=== PATIENT | female | born 1985 | race African-American/Black ===

== ENCOUNTER 2020-10-30 11:20 | Outpatient (REF) | payer OTHER, SELFPAY ==
[2020-10-30 14:47] LABS: Thyroid Stimulating Hormone 1.12 uIU/mL (0.32-4.0)
[2020-10-31 09:13] LABS: Prolactin 13.8 ng/mL
[2020-10-31 21:42] LABS: C. trachomatis RNA TMA NOT DETECTED (NOT DETECTED); N. gonorrhoeae RNA TMA NOT DETECTED (NOT DETECTED)
== END 2020-10-30 11:21 | disposition home or self-care (01) ==
LOC: HO.HMGCLDS 11:20
PROVIDERS: PCP Internal Medicine; Visit Provider Advanced Practice Midwife
DX: Z11.3 Encounter for screening for infections with a predominantly sexual mode of transmission (principal)
CPT/HCPCS: 84146; 84443; 87086; 87491; 87591

== ENCOUNTER 2020-11-01 09:59 | Outpatient (REF) | payer OTHER, SELFPAY ==
--- NOTE | 2020-11-01 | US_ITS ---
EXAMINATION: ULTRASOUND PELVIS COMPLETE. CLINICAL INFORMATION: Excessive and frequent menstruation. COMPARISON: None TECHNIQUE: Transabdominal and transvaginal ultrasound pelvis is performed. FINDINGS: The uterus is anteverted and anteflexed measuring 8.6 cm in length, 5.1 cm in AP and 6.1 cm wide. The uterus is homogeneous in echotexture. The endometrial thickening is 1.1 cm. There are several nabothian cysts seen in cervix. The right ovary measures 3.2 x 2.0 x 2.5 cm and volume 8.0 mL. It appears unremarkable. The left ovary measures 3.2 x 2.4 x 2.9 cm and volume 1.5 mL. There is a simple anechoic cyst measuring 2.0 x 1.6 x 2.0 cm. There is no free fluid in cul-de-sac. US/US pelvic complete IMPRESSION: Simple left ovarian cyst. Unremarkable anteverted uterus. Small nabothian cysts seen in the cervix. The right ovary is unremarkable.
--- NOTE | 2020-11-01 | US_ITS ---
EXAMINATION: ULTRASOUND PELVIS COMPLETE. CLINICAL INFORMATION: Excessive and frequent menstruation. COMPARISON: None TECHNIQUE: Transabdominal and transvaginal ultrasound pelvis is performed. FINDINGS: The uterus is anteverted and anteflexed measuring 8.6 cm in length, 5.1 cm in AP and 6.1 cm wide. The uterus is homogeneous in echotexture. The endometrial thickening is 1.1 cm. There are several nabothian cysts seen in cervix. The right ovary measures 3.2 x 2.0 x 2.5 cm and volume 8.0 mL. It appears unremarkable. The left ovary measures 3.2 x 2.4 x 2.9 cm and volume 1.5 mL. There is a simple anechoic cyst measuring 2.0 x 1.6 x 2.0 cm. There is no free fluid in cul-de-sac. US/US transvaginal IMPRESSION: Simple left ovarian cyst. Unremarkable anteverted uterus. Small nabothian cysts seen in the cervix. The right ovary is unremarkable.
== END 2020-11-01 10:00 | disposition home or self-care (01) ==
LOC: HO.HMGCX 09:59
PROVIDERS: PCP Family Medicine; Visit Provider Advanced Practice Midwife
DX: N92.1 Excessive and frequent menstruation with irregular cycle (principal)
CPT/HCPCS: 76830; 76856

== ENCOUNTER 2025-03-28 11:14 | Outpatient (REF) | payer OTHER, SELFPAY ==
--- OUTSIDE RECORDS SUMMARY | 2025-03-28 12:57 | XMS_ITS | Patient Health Record ---
[facility] Organization [facility] Address [address] [place] [address] Care Team Providers Care Forge Operator Helper Name Role Phone Morena Ochoa Unavailable [phone] Allergies Allergen (clinical drug ingredient) Drug/Non Drug Allergy documented on EMR Reaction Allergy Type Onset Date Status amoxicillin Amoxicillin Hives Drug Allergy Act kaleigh miconazole Monistat 7 Swelling Drug Allergy Activ e Reason For Referral No Information Medications Medication SIG (Take, Route, Frequency, Duration) Notes Start Date End Date Status MetroGel-Vaginal 0.75 % 1 application at bedtime Vaginal Once a day for 5 day(s) 06/24/2016 Not-Taking Loryna 3-0.02 MG 1 tablet Orally Once a day for 365 days 08/05/2016 Active Loryna 3-0.02 MG 1 tablet Orally Once a day for 90 days 10/07/2016 Active Social History Tobacco Use: Social History Observation Description Date Details (start date - stop date) Former Smoker NA - NA Tobacco Use/Smoking Question Answer Notes Are you a former smoker Alcohol Screen (Audit-C) Question Answer Notes Did you have a drink containing alcohol in the p ast year? No Points 0 Sexual History Question Answer Notes Had sex in the past 12 months (vaginal, oral, or anal)? Yes with Men only Prevention strategies discussed: Other Problems Problem Type SNOMED Code ICD Code Onset Dates Problem Status W/U Status Risk Notes Problem Irregular Menstruation (56455298) Other specified irregular menstruation (N92.5) Active confirmed Plan Of Treatment Pending Test Test Name Order Date Ultrasound : Pelvic 02/08/2016 Medical (General) History Medical History History ICD Code Pelvic and perineal pain R10.2 Surgical History Surgery Date(Month/Year) x 1 2011 Hernia repair age 1 Hospitalization History Reason Date(Month/Year) See Surgical Hx
[2025-03-28 13:05] LABS: MANUAL DIFF FLAG NO
[2025-03-28 13:09] LABS: Basophils Percent Auto 0.4 % (0-2); Eosinophils Absolute Auto 0.1 X10*3/uL (0.0-0.4); Eosinophils Percent Auto 1.7 % (0-4); Hematocrit 30.3 % (37.0-47.0); Hemoglobin 9.1 g/dl (12.0-16.0); Imm Gran Abs Auto 0.01 X10*3/uL (0.00-0.03); Imm Gran Pct Auto 0.2 % (0.0-0.4); Lymphocytes Absolute Auto 1.7 X10*3/uL (1.2-4.9); Lymphocytes Percent Auto 35.5 % (20-40); Mean Corpuscular Hemoglobin 20.9 pg (27.0-33.0); Mean Corpuscular Volume 69.5 fL (80.0-98.0); Mean Platelet Volume 11.4 fL (9.4-12.3); Monocytes Absolute Auto 0.4 X10*3/uL (0.1-1.2); Monocytes Percent Auto 8.6 % (2-11); Neutrophils Absolute Auto 2.6 x10*3/uL (2.0-8.3); Neutrophils Percent Auto 53.6 % (45-73); Platelet Count 232 X10*3/uL (160-400); Red Blood Count 4.36 X10*6/uL (4.20-5.50); Red Cell Distribution Width 18.7 % (11.0-16.0); White Blood Count 4.8 X10*3/uL (4.8-10.8)
[2025-03-28 13:29] LABS: Alanine Aminotransferase 15 U/L (0-31); Albumin Level 4.6 g/dL (3.5-5.0); Alkaline Phosphatase 51 U/L (39-117); Anion Gap 9 (12-20); Aspartate Amino Transferase 18 U/L (5-31); Bilirubin Total 0.3 mg/dL (0.0-1.0); Blood Urea Nitrogen 14 mg/dL (9-16); Calcium 9.5 mg/dL (8.4-10.2); Carbon Dioxide 26 mmol/L (22-29); Chloride 110 mmol/L (96-108); Cholesterol 180 mg/dL (<200); Estimated Glomerular Filt Rate > 60; Glucose Random 101 mg/dL (60-115); HDL Cholesterol 67 mg/dL (>40); LDL Cholesterol Calculated 101 mg/dL (<100); Potassium 3.9 mmol/L (3.3-5.1); Sodium 141 mmol/L (135-145); Total Protein 7.5 g/dL (6.5-8.0); Triglycerides 64 mg/dL (<150)
[2025-03-28 13:42] LABS: Ferritin 5 ng/mL (10-250)
[2025-03-28 14:41] LABS: CT PCR NOT DETECTED (Not Detect.); NG PCR NOT DETECTED (Not Detect.)
== END 2025-03-28 11:15 | disposition home or self-care (01) ==
LOC: HO.10HDL 11:14
PROVIDERS: Visit Provider Internal Medicine
DX: Z00.00 Encounter for general adult medical examination without abnormal findings (principal); F32.9 Major depressive disorder, single episode, unspecified; N95.1 Menopausal and female climacteric states; R42 Dizziness and giddiness; Z12.4 Encounter for screening for malignant neoplasm of cervix
CPT/HCPCS: 80053; 80061; 82728; 85025; 87491; 87591

== ENCOUNTER 2025-04-04 15:13 | Outpatient (REF) | payer OTHER, SELFPAY ==
--- OUTSIDE RECORDS SUMMARY | 2025-04-04 18:23 | XMS_ITS | Patient Health Record ---
Author Organization [facility] Address [address] [place] [address] Care Team Providers Care Network Security Administrator Name Role Phone Morena Ochoa Unavailable [phone] Allergies Allergen (clinical drug ingredient) Drug/Non Drug [...] W/U Status Risk Notes Problem Irregular Menstruation (84608869) Other specified irregular menstruation (N92.5) Active confirmed Plan Of Treatment Pending Test Test Name Order Date Ultrasound : Pelvic 02/08/2016 Medical (General) History Medical History History ICD Code Pelvic and perineal pain R10.2 Surgical History Surgery Date(Month/Year) x 1 2011 Hernia repair age 1 Hospitalization History Reason Date(Month/Year) See Surgical Hx
== END 2025-04-04 15:14 | disposition home or self-care (01) ==
LOC: HO.MAMMO 15:13
PROVIDERS: PCP Internal Medicine; Visit Provider Internal Medicine
DX: Z13.89 Encounter for screening for other disorder (principal)

== ENCOUNTER 2025-08-09 09:34 | Outpatient (REF) | payer OTHER, SELFPAY ==
--- OUTSIDE RECORDS SUMMARY | 2025-08-09 10:57 | XMS_ITS | Patient Health Record ---
Author Organization [facility] Address [address] [place] [address] Care Team Providers Care Dub Room Engineer Name Role Phone Morena Ochoa Unavailable [phone] Allergies Allergen (clinical drug ingredient) Drug/Non Drug Allergy documented on EMR Reaction Allergy Type Onset Date Status amoxicillin Amoxicillin Hives Drug Allergy Act kaleigh miconazole Monistat 7 Swelling Drug Allergy Activ e Reason For Referral No Information Medications Medication SIG (Take, Route, Frequency, Duration) Notes Start Date End Date Status MetroGel-Vaginal 0.75 % 1 application at bedtime Vaginal Once a day; Duration: 5 day(s) 06/24/2016 Not-Taking Loryna 3-0.02 MG 1 tablet Orally Once a day; Duration: 365 days 08/05/2016 Active Loryna 3-0.02 MG 1 tablet Orally Once a day; Duration: 90 days 10/07/2016 Active Social History Tobacco [...] W/U Status Risk Notes Problem Irregular Menstruation (10783565) Other specified irregular menstruation (N92.5) Active confirmed Plan Of Treatment Pending Test Test Name Order Date Ultrasound : Pelvic 02/08/2016 Medical (General) History Medical History History ICD Code Pelvic and perineal pain R10.2 Surgical History Surgery Date(Month/Year) x 1 2011 Hernia repair age 1 Hospitalization History Reason Date(Month/Year) See Surgical Hx
[2025-08-09 13:21] LABS: MANUAL DIFF FLAG NO
[2025-08-09 13:28] LABS: Hematocrit 32.0 % (37.0-47.0); Hemoglobin 9.9 g/dl (12.0-16.0); Imm Gran Abs Auto 0.01 X10*3/uL (0.00-0.03); Imm Gran Pct Auto 0.2 % (0.0-0.4); Lymphocytes Absolute Auto 1.3 X10*3/uL (1.2-4.9); Mean Corpuscular HGB Conc 30.9 g/dl (31.0-35.0); Mean Corpuscular Hemoglobin 22.6 pg (27.0-33.0); Mean Corpuscular Volume 73.1 fL (80.0-98.0); NRBC Abs Auto 0.000 X10*3/uL (0.0-0.012); NRBC Pct Auto 0.0 /100WBC (0.0-0.2); Platelet Count 263 X10*3/uL (160-400); Red Blood Count 4.38 X10*6/uL (4.20-5.50); White Blood Count 4.0 X10*3/uL (4.8-10.8)
[2025-08-09 14:11] LABS: Ferritin 5 ng/mL (10-250)
== END 2025-08-09 09:35 | disposition home or self-care (01) ==
LOC: HO.10HDL 09:34
PROVIDERS: Visit Provider Internal Medicine
DX: D50.0 Iron deficiency anemia secondary to blood loss (chronic) (principal); F32.9 Major depressive disorder, single episode, unspecified; F41.9 Anxiety disorder, unspecified
CPT/HCPCS: 36415; 82728; 84443; 85025

== ENCOUNTER 2025-10-12 14:06 | Outpatient (REF) | payer OTHER, SELFPAY ==
[2025-10-13 02:19] LABS: Bacterial Vaginosis PCR POSITIVE (Negative); Candida Group PCR NOT DETECTED (Not Detect); Candida glab krusei PCR NOT DETECTED (Not Detect); Trichomonas vaginalis PCR NOT DETECTED (Not Detect)
[2025-10-13 02:51] LABS: CT PCR NOT DETECTED (Not Detect.); NG PCR NOT DETECTED (Not Detect.)
== END 2025-10-12 14:07 | disposition home or self-care (01) ==
LOC: HO.LNP 14:06
PROVIDERS: PCP Internal Medicine; Visit Provider Advanced Practice Midwife
DX: Z01.419 Encounter for gynecological examination (general) (routine) without abnormal findings (principal); N92.0 Excessive and frequent menstruation with regular cycle; Z30.9 Encounter for contraceptive management, unspecified; Z20.2 Contact with and (suspected) exposure to infections with a predominantly sexual mode of transmission
CPT/HCPCS: 81515; 87491; 87591; 87626; 88175

== ENCOUNTER 2025-10-12 14:06 | Outpatient (AMB) | payer OTHER, SELFPAY ==
--- NOTE | 2025-10-12 14:12 | MHC.OFFVIS ---
Vital Signs 10/12/25 14:23 Height 5 ft 9.5 in Weight 147 lb BMI 21.4 BP 110/78 Blood Pressure Location Rt brachial Position Sitting Intake Visit Reasons: New patient Consult for IUD mirena Intake Note: Patient here referred by Pcp to get the Mirena English As A Second Language Instructor Required: No Development Eng: Development Eng Present (Anay Martinez LPN) Accompanied by: Self / Same As Patient Allergies amoxiccillin Allergy (Mild, Uncoded 10/12/25 14:15) Hives Medication List - Last Reconciled 10/12/25 by Doris Wilkins CNM famotidine (Pepcid AC) 20 mg PO DAILY ferrous sulfate 325 mg PO DAILY Is last menstrual period known: Yes Last menstrual period: 09/29/25 Do you need a note to return to daycare/school/sports/work: No HPI Comments Details: Pt is informed of UMAIR la listening for clinical documentation and agrees to its use during the visit The patient is a 40-year-old female presenting for contraception counseling. She does not desire any more children and is currently using condoms irregularly for contraception. Partner of 7 yrs, denies any issues of DV. She reports a positive prior experience with the Mirena IUD and would like to use it again. The patient's obstetric history is , with both deliveries via section. Her menstrual periods occur monthly and last for five days, with the first three days being heavy, requiring a sanitary pad change every hour and a half. She notes that her flow has become inconsistent, and she experiences blood clots. Her last pelvic ultrasound was in 2020 and did not show fibroids, but her endometrial lining was noted to be slightly thickened at the time. She has no history of abnormal Pap smears, with her most recent one being about three years ago. Past medical history is significant for iron deficiency anemia, with a prior hemoglobin of 9. She currently takes a daily iron supplement and occasionally uses Pepcid. She had a hernia repair at age [age]. [facility] Medical History (Updated 10/12/25 @ 15:12 by Doris Wilkins CNM) Iron deficiency anemia delivery delivered Family History (Updated 10/12/25 @ 14:20 by Anay Martinez LPN) Maternal Grandmother Breast cancer Paternal Grandmother Uterine cancer Maternal Uncle Prostate cancer Social History (Updated 10/12/25 @ 15:11 by VASYL Ayala Household Members: Spouse and Children Housing: Apartment Alcohol intake: never Patient Tobacco Use Status: Never used Tobacco Current occupation: direct care Sexually active: Yes Sexual orientation: Straight/Heterosexual Gender identity: Female Female Reproductive History Menstrual Age of Menarche: 11 Date of last menstrual period: 09/29/25 control method: condoms Total pregnancies: 3 Number of Living Children: 2 Ab spontaneous: 1 Date of last pap smear: 10/12/22 (done at [facility]) History of abnormal pap smear: No Review of Systems Const Reports no additional complaints Eyes Reports no additional complaints ENT Reports no additional complaints Card Reports no additional complaints Resp Reports no additional complaints GI Reports no additional complaints Reports as per HPI Skin/Breast Reports system reviewed and no additional complaints, except as documented Physical Exam Vital Signs: Last Vital Signs BP 110/78 10/12/25 14:23 BMI result Body Mass Index 21.4 Const General: cooperative and healthy appearing Orientation/consciousness: patient oriented x3 HEENT Head: Yes normocephalic Resp Effort & Inspection: normal respiratory effort and able to speak in complete sentences Speculum Exam - Vagina: normal appearance of the vagina and normal vaginal discharge Speculum Exam - Cervix: normal appearance of the cervix Bimanual exam- vagina & uterus: normal bimanual exam, non-tender and no cervical motion tenderness Bimanual Exam- Adnexa, other: normal adnexae and No adnexal tenderness Skin General skin exam: no rashes or lesions noted Neuro General: patient oriented x3 Psych Affect: normal affect Assessment & Plan Assessment & Plan (1) Menorrhagia with regular cycle: Code(s): N92.0 - Excessive and frequent menstruation with regular cycle Plan: Patient is informed that the IUD is not abortive, but works by cervical mucous thickening , limiting sperm motility/ spemicidal, limiting ovulation /ovicidal thinning the uterine lining and preventing implantation. She is instructed that this is best inserted at the end of menses but can be started at any time of the cycle. Urine DNA probe for chlamydia and gonorrhea was taken at this visit. Side effects and potential complications were discussed with her, including irregular bleeding, cramping, vaginal discharge, possibility of discomfort for partner during intercourse from strings, heavier or managed services consultant menses, exposure of IUD, uterine perforation with loss of IUD and potential for surgical removal, ectopic or tubal , infection with potential loss of future fertility. (2) Counseling performed for contraceptive intrauterine device (IUD): Code(s): Z30.9 - Encounter for contraceptive management, unspecified Plan 1. Desire for long-acting reversible contraception The patient has a history of successful Mirena IUD use and expresses a desire for re-insertion. She understands the procedure, risks including perforation and ectopic , and benefits including its 8-year efficacy and potential to mitigate imtiaz-menopausal symptoms. The plan is to insert a Mirena IUD after a pelvic ultrasound is completed and reviewed. A pelvic exam and infection screening will be performed today. The patient was advised to use condoms for contraception in the interim. 2. Menorrhagia The patient reports heavy menstrual bleeding, which is a likely contributor to her anemia. A pelvic ultrasound will be ordered to rule out underlying pathology such as uterine fibroids prior to IUD placement. The Mirena IUD is also therapeutic for heavy menstrual bleeding and is expected to improve her symptoms. 3. Iron deficiency anemia The patient's hemoglobin was previously as low as 9. She was counseled to continue her daily iron supplement and increase her intake of iron-rich foods. Her anemia is expected to improve with the control of her menorrhagia via the Mirena IUD. 4. Health Maintenance The patient's last Pap smear was three years ago. Pt will sign EMILIANO and Records will be requested from her previous provider. Infection screening will be performed today in preparation for the IUD insertion. Orders: Orders US pelvic and transvaginal 1 Week N92.0 - Excessive and frequent menstruation with regular cycle Pap Smear Today Z01.419 - Encounter for gynecological examination (general) (routine) without abnormal findings Bacterial Vaginosis Panel Today N92.0 - Excessive and frequent menstruation with regular cycle, Z11.3 - Encounter for screening for infections with a predominantly sexual mode of transmission, Z12.4 - Encounter for screening for malignant neoplasm of cervix, Z30.9 - Encounter for contraceptive management, unspecified HPV High risk Today N92.0 - Excessive and frequent menstruation with regular cycle, Z01.419 - Encounter for gynecological examination (general) (routine) without abnormal findings, Z12.4 - Encounter for screening for malignant neoplasm of cervix, Z30.9 - Encounter for contraceptive management, unspecified CT NG by PCR Vag/Cerv Today N92.0 - Excessive and frequent menstruation with regular cycle, Z11.3 - Encounter for screening for infections with a predominantly sexual mode of transmission, Z12.4 - Encounter for screening for malignant neoplasm of cervix, Z30.9 - Encounter for contraceptive management, unspecified Medications: New ferrous sulfate 325 mg PO DAILY famotidine (Pepcid AC) 20 mg PO DAILY Patient Instructions: - Continue taking your daily iron pill. - Try to eat more iron-rich foods like green leafy vegetables, red meats, and beans to help with your anemia. - Please stop at the front facer to schedule a pelvic ultrasound appointment. - We need to do this ultrasound to check for things like fibroids or other uterine abnormality - Please sign a release form so we can obtain your past medical records, including your last Pap smear. - Use condoms for control until your IUD is in place. - Once the ultrasound is done and the results are reviewed, we will schedule you to come back for the IUD insertion, likely during your next period around the first week of October Coding Level of Care Code New Pt Level 3 (65202) Diagnoses Menorrhagia with regular cycle N92.0 Counseling performed for contraceptive intrauterine device (IUD) Z30.9
[2025-10-12 14:23] VITALS: BP 110/78; BMI 21.4
--- OUTSIDE RECORDS SUMMARY | 2025-10-12 18:20 | XMS_ITS | Patient Health Record ---
Author Organization [facility] Address [address] [place] [address] Care Team Providers Care Manager Cosmetics Name Role Phone Morena Ochoa Unavailable [phone] Allergies Allergen (clinical drug ingredient) Drug/Non Drug [...] W/U Status Risk Notes Problem Irregular Menstruation ([id number]) Other specified irregular menstruation (N92.5) Active confirmed Plan Of Treatment Pending Test Test Name Order Date Ultrasound : Pelvic 02/08/2016 Medical (General) History Medical History History ICD Code Pelvic and perineal pain R10.2 Surgical History Surgery Date(Month/Year) x 1 2011 Hernia repair age 1 Hospitalization History Reason Date(Month/Year) See Surgical Hx
== END 2025-10-12 15:05 | disposition home or self-care (01) ==
LOC: HO.HWSM 14:06
PROVIDERS: PCP Internal Medicine; Visit Provider Advanced Practice Midwife
DX: N92.0 Excessive and frequent menstruation with regular cycle (principal); Z30.9 Encounter for contraceptive management, unspecified
CPT/HCPCS: 99203